=== PATIENT | female | born 1975 | race Caucasian/White ===

== ENCOUNTER 2017-08-07 20:44 | Emergency (ER) | payer OTHER ==
[~2017-08-07] VITALS: Ht 165.1 cm; Wt 86.2 kg
[2017-08-07] MEDS ORDERED: NOHOMEMEDICATIONS (20:56)
[2017-08-07] MEDS ORDERED: TRAMADOL 50 MG50 MG PO (21:36)
[2017-08-07 22:01] VITALS: BP 124/75
== END 2017-08-07 22:03 | disposition home or self-care (01) ==
LOC: M.ERS 20:44
DX: S93.491A Sprain of other ligament of right ankle, initial encounter (principal); W10.8XXA Fall (on) (from) other stairs and steps, initial encounter; Y93.89 Activity, other specified; Y92.89 Other specified places as the place of occurrence of the external cause; Y99.8 Other external cause status